=== PATIENT | female | born 1935 | race Caucasian/White ===

== ENCOUNTER 2021-09-03 08:49 | Inpatient (IN) ==
[2021-09-03] MEDS ORDERED: Lidocaine PATCH 5% PATCH TRANSDERM ONE (10:03)
[2021-09-03] MEDS ORDERED: Ondansetron 4 mg VIAL 2 MG/ML 2 ml VIAL IV ONE (10:09)
[2021-09-03] MEDS ORDERED: Morphine 4 MG/ML VIAL (1 ml) IV ONE (10:09)
[2021-09-03] MEDS: Lactated Ringers 1000 ml BAG 1,000 ML IV ONE ×2 (10:38→12:44)
[2021-09-03 11:02] LABS: ABS Lymphocytes 0.9 10^3/ul (1.0-4.8); ABS Monocytes 0.4 10^3/ul (0-0.8); ABS Neutrophils 6.2 10^3/ul (1.5-7.7); Eosinophil % 0.3 %; Hematocrit 39 % (35-47); Hemoglobin 13.3 g/dL (12.0-16.0); Lymphocyte % 11.4 %; Mean Corpuscular HGB Conc 35 g/dL (31-36); Mean Corpuscular Hemoglobin 32 pg (27-31); Mean Corpuscular Volume 91 fL (80-97); Mean Platelet Volume 8.6 fL (7.4-10.4); Platelet Count 260 10^3/uL (150-450); Red Blood Count 4.23 10^6 /uL (3.70-4.87); Red Cell Distribution Width 13 % (10-15); White Blood Count 7.5 10^3/uL (3.5-10.8)
[2021-09-03 11:17] LABS: Anion Gap 7 mmol/L (2-11); Blood Urea Nitrogen 9 mg/dL (6-24); C Reactive Protein < 1.00 mg/L (<8.01); CO2 Carbon Dioxide 27 mmol/L (22-32); Calcium 9.3 mg/dL (8.6-10.3); Chloride 93 mmol/L (101-111); Glucose 116 mg/dL (70-100); Potassium 3.5 mmol/L (3.5-5.0); Sodium 127 mmol/L (135-145); eGFR CKD-EPI 82.4 (>60)
[2021-09-03] MEDS ORDERED: Metoclopramide 5 MG/ML VIAL (10 mg) IV ONE (12:03)
[2021-09-03 12:40] LABS: Troponin I 0.01 ng/mL (<0.03)
[2021-09-03] MEDS: Lactated Ringers 500 ml BAG 500 ML IV ONE ×2 (14:21→16:19)
[2021-09-03] MEDS ORDERED: NS 0.9% 1000 ml BAG 1,000 ML IV SCH (15:00)
[2021-09-03 15:34] LABS: Rapid COVID-19 Molecular Undetected (Undetected)
[2021-09-03] MEDS: Ondansetron 4 mg VIAL 2 MG/ML 2 ml VIAL IV PRN ×2 (18:06→21:52)
[2021-09-03] MEDS: Lidocaine Patch REMOVE NOTE PATCH OFF SCH (21:06)
[2021-09-03] MEDS: Heparin 5000 UNITS/ML 1 mL VIAL SUBCUT SCH (21:06)
[2021-09-03] MEDS: Morphine 2 MG/ML SYRINGE IV PRN (21:52)
[2021-09-03] MEDS: Lactated Ringers 1000 ml BAG 1,000 ML IV SCH (23:22)
[2021-09-04] MEDS: Ondansetron 4 mg VIAL 2 MG/ML 2 ml VIAL IV PRN ×2 (02:08→10:14)
[2021-09-04] MEDS: Morphine 2 MG/ML SYRINGE IV PRN ×2 (02:08→10:14)
[2021-09-04] MEDS: Heparin 5000 UNITS/ML 1 mL VIAL SUBCUT SCH (06:24)
[2021-09-04] MEDS: Lactated Ringers 1000 ml BAG 1,000 ML IV SCH (06:24)
[2021-09-04 07:43] LABS: ABS Lymphocytes 0.9 10^3/ul (1.0-4.8); ABS Monocytes 0.5 10^3/ul (0-0.8); ABS Neutrophils 7.1 10^3/ul (1.5-7.7); Eosinophil % 0.2 %; Hematocrit 36 % (35-47); Hemoglobin 12.4 g/dL (12.0-16.0); Lymphocyte % 10.9 %; Mean Corpuscular HGB Conc 35 g/dL (31-36); Mean Corpuscular Hemoglobin 32 pg (27-31); Mean Corpuscular Volume 91 fL (80-97); Mean Platelet Volume 8.6 fL (7.4-10.4); Platelet Count 231 10^3/uL (150-450); Red Blood Count 3.91 10^6 /uL (3.70-4.87); Red Cell Distribution Width 13 % (10-15); White Blood Count 8.5 10^3/uL (3.5-10.8)
[2021-09-04 08:00] LABS: Calcium 8.5 mg/dL (8.6-10.3); Potassium 2.9 mmol/L (3.5-5.0); eGFR CKD-EPI 88.1 (>60)
[2021-09-04] MEDS: Vitamin THERAPEUTIC TAB PO SCH (08:00)
[2021-09-04] MEDS ORDERED: LORazepam 2 mg VIAL 1 ml IV PUSH ONE (11:04)
[2021-09-04] MEDS ORDERED: Lorazepam PYXIS KEY PRN (11:04)
[2021-09-04] MEDS ORDERED: Potassium Chloride LIQUID 20 MEQ/15 ML LIQUID PO ONE (11:11)
[2021-09-04] MEDS ORDERED: Magnesium Sulf 4 GM/100 ML IV 4,000 MG/100 ML BAG IVPB ONE (12:00)
[2021-09-04 12:51] LABS: Urine Osmo 400 mOsm/kg (150-1150)
[2021-09-04 16:28] LABS: Calcium 8.8 mg/dL (8.6-10.3); Magnesium 2.5 mg/dL (1.9-2.7); Potassium 3.5 mmol/L (3.5-5.0)
[2021-09-04 16:33] LABS: eGFR CKD-EPI 86.4 (>60)
[2021-09-04 17:03] LABS: TSH Ultra Thyroid Stim Horm 5.93 mcIU/mL (0.34-5.60)
[2021-09-04] MEDS: Lidocaine Patch REMOVE NOTE PATCH OFF SCH (19:47)
[2021-09-04] MEDS: Enoxaparin 40 MG/0.4 ML SYR SUBCUT SCH (20:11)
[2021-09-05 00:49] LABS: Calcium 8.5 mg/dL (8.6-10.3); Potassium 3.1 mmol/L (3.5-5.0); eGFR CKD-EPI 77.2 (>60)
[2021-09-05] MEDS ORDERED: Potassium Chloride LIQUID 20 MEQ/15 ML LIQUID PO ONE ×2 (07:30→14:07)
[2021-09-05 07:50] LABS: Calcium 8.6 mg/dL (8.6-10.3); Potassium 3.1 mmol/L (3.5-5.0); eGFR CKD-EPI 77.2 (>60)
[2021-09-05] MEDS: Vitamin THERAPEUTIC TAB PO SCH (08:28)
[2021-09-05] MEDS ORDERED: Calcium Carb (TUMS) 500 mg CHEW TAB PO ONE (13:00)
[2021-09-05 16:35] LABS: Magnesium 1.8 mg/dL (1.9-2.7)
[2021-09-05] MEDS ORDERED: LACTASE ENZYME 3000 UNIT PO PRN ×2 (16:49→17:00)
[2021-09-05] MEDS: Enoxaparin 40 MG/0.4 ML SYR SUBCUT SCH (20:27)
[2021-09-06] MEDS: Lidocaine PATCH 5% PATCH TRANSDERM SCH ×2 (02:43→10:27)
[2021-09-06 06:55] LABS: Calcium 8.9 mg/dL (8.6-10.3); Magnesium 1.8 mg/dL (1.9-2.7); Potassium 3.5 mmol/L (3.5-5.0); eGFR CKD-EPI 67.5 (>60)
[2021-09-06] MEDS ORDERED: Magnesium Sulfate 2 gm BAG 2 GM/50 ML BAG IVPB ONE (07:11)
[2021-09-06] MEDS ORDERED: Potassium Chlor 20 meq TAB.ER PO ONE (07:11)
[2021-09-06 07:47] LABS: Free T4 1.03 ng/dL (0.61-1.12)
[2021-09-06] MEDS: Vitamin THERAPEUTIC TAB PO SCH (10:25)
[2021-09-06] MEDS: URE NA PO SCH (10:59)
[2021-09-06] MEDS: Nystatin SUSPENSION 100,000 UNITS/ML UDC PO SCH ×3 (12:45→21:08)
[2021-09-06 16:12] LABS: CO2 Carbon Dioxide 26 mmol/L (22-32); Calcium 8.6 mg/dL (8.6-10.3); Chloride 88 mmol/L (101-111); Sodium 120 mmol/L (135-145)
[2021-09-06 16:14] LABS: Anion Gap 6 mmol/L (2-11)
[2021-09-06 16:17] LABS: Blood Urea Nitrogen 61 mg/dL (6-24); Glucose 104 mg/dL (70-100); eGFR CKD-EPI 65.7 (>60)
[2021-09-06] MEDS ORDERED: Lidocaine Patch REMOVE NOTE PATCH OFF SCH (21:00)
[2021-09-06] MEDS: Enoxaparin 40 MG/0.4 ML SYR SUBCUT SCH (21:09)
[2021-09-07] MEDS: Ondansetron 4 mg VIAL 2 MG/ML 2 ml VIAL IV PRN (00:09)
[2021-09-07] MEDS: Morphine 2 MG/ML SYRINGE IV PRN (00:09)
[2021-09-07 05:37] LABS: ABS Basophils 0.1 10^3/ul (0-0.2); ABS Eosinophils 0.1 10^3/ul (0-0.6); ABS Lymphocytes 1.6 10^3/ul (1.0-4.8); ABS Monocytes 0.7 10^3/ul (0-0.8); ABS Neutrophils 5.5 10^3/ul (1.5-7.7); Eosinophil % 1.5 %; Hematocrit 37 % (35-47); Hemoglobin 12.6 g/dL (12.0-16.0); Lymphocyte % 19.5 %; Mean Corpuscular HGB Conc 34 g/dL (31-36); Mean Corpuscular Hemoglobin 31 pg (27-31); Mean Corpuscular Volume 92 fL (80-97); Mean Platelet Volume 8.3 fL (7.4-10.4); Platelet Count 247 10^3/uL (150-450); Red Blood Count 4.06 10^6 /uL (3.70-4.87); Red Cell Distribution Width 13 % (10-15)
[2021-09-07 05:56] LABS: Calcium 8.7 mg/dL (8.6-10.3); Magnesium 1.9 mg/dL (1.9-2.7); Potassium 3.9 mmol/L (3.5-5.0); eGFR CKD-EPI 66.6 (>60)
[2021-09-07 06:28] VITALS: BP 141/55
[2021-09-07] MEDS ORDERED: Magnesium Sulfate IV 1GM/100ML 1 GM/100 ML BAG IV ONE (06:56)
[2021-09-07] MEDS: URE NA PO SCH (08:07)
[2021-09-07] MEDS: Nystatin SUSPENSION 100,000 UNITS/ML UDC PO SCH (08:08)
[2021-09-07] MEDS: Vitamin THERAPEUTIC TAB PO SCH (08:08)
[2021-09-07] MEDS: Lidocaine PATCH 5% PATCH TRANSDERM SCH (08:08)
== END 2021-09-07 12:35 | disposition home or self-care (01) | DRG 552 ==
LOC: ED 08:49 → EDHOLD 08:49 → SUATTDRO 15:02 → MED 22:10
PROVIDERS: ADMIT Internal Medicine; ATTEND Internal Medicine